=== PATIENT | male | born 2000 | race Caucasian/White ===

== ENCOUNTER 2020-11-13 02:48 | Emergency (ER) | payer OTHER ==
[2020-11-13 05:03] LABS: HEMOGLOBIN 15.7 gm/dl (14.0-17.5); RED BLOOD COUNT 5.49 M/UL (4.20-5.50); WHITE BLOOD COUNT 16.8 K/UL (4.5-11.0)
[2020-11-13 05:44] LABS: BUN/CREATININE RATIO 16 (0-10)
[2020-11-13] MEDS ORDERED: NARCAN 2 MG/21 MG/ML SQ (05:54)
== END 2020-11-13 06:09 | disposition home or self-care (01) ==
LOC: ER1 02:48
PROVIDERS: Family Medicine
DX: T42.4X1A Poisoning by benzodiazepines, accidental (unintentional), initial encounter (principal); T40.7X1A Poisoning by cannabis (derivatives), accidental (unintentional), initial encounter; R40.4 Transient alteration of awareness; F17.290 Nicotine dependence, other tobacco product, uncomplicated; Y92.9 Unspecified place or not applicable
CPT/HCPCS: 36415; 80053; 80307; 85025; 93005; 96374; 99284; G0480